=== PATIENT | male | born 1935 | race Caucasian/White ===

== ENCOUNTER 2016-05-26 03:19 | Inpatient (IN) | payer OTHER, MEDICARE ==
[~2016-05-26] VITALS: Ht 165.1 cm; Wt 70.3 kg
[2016-07-23] MEDS ORDERED: SPIRIVA18 MCG INH (15:23)
[2016-07-23] MEDS ORDERED: ASPIRIN EC81 M1 PO (15:23)
--- NOTE | 2016-07-28 10:19 | Admission Core Measures ---
Admission Meds I reviewed the following Meds: Current Medications Sig/Dharmesh Start time Last Medication Dose Stop Time Status Admin Acetaminophen 975 MG ONCE 07/28 NR (Tylenol) 07/28 2358 Cefazolin Sodium 2,000 MG ONCE 07/28 NR (Kefzol-Ancef Inj) 07/28 2358 Oxycodone HCl 10 MG ONCE 07/28 NR (Roxicodone) 07/28 2358 Acute Coronary Syndrome Inclusion Criteria ACS Diagnosis No Inpatient Core Measures LDL Reminder: If No, please order W/I first 24hr of stay Congestive Heart Failure Inclusion Criteria CHF Diagnosis No Cerebrovascular accident Inclusion Criteria CVA/TIA Diagnosis No Inpatient Core Measures Bedside Swallow Eval Reminder: If BSE failed, place ST order Antithrombotic Reminder: Order Antithrombotic Medication by end of day 2 Antithrombotic Reminder: Document Reason Antithrombotic Not ordered by end of day 2 AFIB/Flutter Reminder: If Present, add to problem list AFIB/Flutter Reminder: Order Anticoag Medication for pts with AFIB/Flutter Atherosclerosis Reminder: If Present, add to problem list LDL Reminder: If No, please order W/I first 24hr of stay PT Order Reminder: If No, please order Venous thromboembolism Inpatient Core Measures VTE Risk Factors: Age > 40, Surgery No [facility] VTE prophylaxis d/t No contraindications No VTE Pharm Prophylaxis d/t No contraindications Inclusion Criteria - Per Current guidelines, there needs to be overlap - treatment for the first 5 days of Warfarin therapy. - Parenteral Anticoagulation (IV or SC) needs to be - given along with Warfarin therapy. VTE Diagnosis No VTE Type NONE VTE Confirmed by (Test) NONE Problem List As ranked by this Provider includes Assessment & Plan 1. Status post total hip replacement, left HOME MEDS Home Med List Aspirin (Ecotrin*) 81 MG TABLET.DR 1 TAB PO DAILY PROPHO (Reported) Tiotropium [place] (Spiriva) 18 MCG CAP.W.DEV 1 CAP INH DAILY COPD (Reported)
[2016-07-28] MEDS ORDERED: MIRALAX17 G1 PO (10:37)
[2016-07-28] MEDS ORDERED: COLACE100 M1 PO (10:37)
[2016-07-28] MEDS ORDERED: DILAUDID2 M1 PO (10:37)
[2016-07-28] MEDS ORDERED: ASPIRIN EC325 M2 PO (10:37)
[2016-07-28] MEDS ORDERED: MS CONTIN15 M2 PO (10:37)
--- NOTE | 2016-07-28 11:12 | Patient Discharge Instructions ---
Discharge Instructions General Discharge Information You were seen/treated for: Left hip DJD/osteoarthritis You had these procedures: Left anterior total hip replacement Watch for these problems: A vertical 101, excessive drainage from the wound, inability to bear weight on the operative site Do not soak the wound: Yes No bath, but you may shower: Yes Other wound care: Dry dressing change once daily starting postoperative day #2. You may shower as desired. No baths. No ointments of any kind. Ice as needed for comfort. Diet Continue normal diet: Yes Recommended Diet: Regular Activity Full Activity/No Limits: No Activity Self Limited: Yes Pounds, do NOT lift more than: 5 Activity Limited to: Weight bear as tolerated Other activity limits: Avoid strenuous activity. You may ambulate as desired with rolling walker and progressed per PT recommendations. No driving while using narcotics and until cleared by [facility] Acute Coronary Syndrome Inclusion Criteria At DC or during hospital stay patient has or had the following: ACS DIAGNOSIS No Discharge Core Measures Meds if any: Prescribed or Continued at Discharge Meds if any: NOT Prescribed or Continued at Discharge Congestive Heart Failure Inclusion Criteria At DC or during hospital stay patient has or had the following: CHF DIAGNOSIS No Discharge Core Measures Meds if any: Prescribed or Continued at Discharge Meds if any: NOT Prescribed or Continued at Discharge Cerebrovascular accident Inclusion Criteria At DC or during hospital stay patient has or had the following: CVA/TIA Diagnosis No Discharge Core Measures Meds if any: Prescribed or Continued at Discharge Meds if any: NOT Prescribed or Continued at Discharge Venous thromboembolism Inclusion Criteria VTE Diagnosis No VTE Type NONE VTE Confirmed by (Test) NONE Discharge Core Measures - Per Current guidelines, there needs to be overlap - treatment for the first 5 days of Warfarin therapy. - If discharged on Warfarin prior to 5 days of - overlap therapy, the patient will need to be - assessed for post discharge needs including - *Post discharge parental anticoagulation - *Warfarin and/or parental anticoagulation education - *Follow up date to check INR post discharge At least 5 days overlap therapy as Inpatient No Meds if any: Prescribed or Continued at Discharge Note: Overlap Therapy is Warfarin and Anticoagulant Meds if any: NOT Prescribed or Continued at Discharge
--- NOTE | 2016-07-28 12:57 | RADIOLOGY REPORT ---
EXAMINATION: XR HIP, LEFT CLINICAL INFORMATION: Status post total hip arthroplasty. COMPARISON: 04/07/2016. TECHNIQUE: Two views of the left hip. FINDINGS: There are immediate postoperative changes identified consistent with the patient's history of a left total hip arthroplasty. The acetabular and proximal femoral components appear well-positioned without evidence of immediate complication. IMPRESSION: Postoperative changes without radiographic evidence of complication.
[2016-07-28 13:45] VITALS: BP 118/78
--- NOTE | 2016-07-28 13:45 | NUR ---
NURSING NOTE: PT ARRIVED TO FLOOR VIA STRETVHER WITH DISTRIBUTION FROM PACU, S/P L THR. PT AWAKE, A/OX3, VITALS OBTAINED, PT AMBULATED WITH P.T. FROM STRETCHER IN HALLWAY TO RECLINER WITH RW/ASSIST X2. PT DENIES PAIN, +PULSES, BED/CHAIR ALARM IN PLACE; PT C/O "JELLO LEGS FROM ANESTHESIA" IVF PER MD ORDER.DSG INTACT. INFOR PACKET GIVEN, HOURLY ROUNDING EXPLAINED. INSENTIVE SPIR GIVEN AND TAUGHT, AT BEDSIDE, ICE PACK IN PLACE, PT AWARE TO CALL FOR ASSIST. CONT TO MONITOR. WILL REVIEW ORDERS
--- NOTE | 2016-07-28 15:41 | PN- Orthopedic ---
Subjective Subjective: Patient has no major complaint at this time. He denies pain. He is tolerating a diet. He hasn't voided as of yet, but feels the urge. He ambulated with physical therapy, but was unable to do stairs at that time due to some numbness, which has since resolved. Otherwise denies headache, dizziness, chest pain, shortness of breath. Objective Vital Signs and I&Os Vital Signs Date Time Temp Pulse Resp B/P B/P Pulse O2 O2 Flow FiO2 Mean Ox Delivery Rate 07/28 1345 97.6 60 20 118/78 97 Room Air Intake & Output 07/28 1600 07/28 0800 07/28 0000 07/27 1600 07/27 0800 07/27 0000 Intake Total 175 Output Total 0 Balance 175 Intake, IV 75 Intake, Oral 100 Number 0 Bowel Movements Output, Urine 0 Patient 155 lb Weight Weight Reported by Patient Measurement Method Physical Exam: Gen.: Patient is awake and alert. He is sitting in the chair. No acute distress. Cardiac: Regular Pulmonary: Clear bilaterally. Extremities: Left hip dressing is clean, dry, and intact. There is some mild to moderate suri-incisional swelling, but within expected limits. The area is soft. Lower extremity sensation is intact bilaterally. Strength of dorsiflexion and plantar flexion are 4 out of 5 and equal bilaterally. Teds are in place. No significant distal edema or calf tenderness are appreciated. Assessment/Plan Assessment/Plan Patient is an 80-year-old male who is now postoperative day #0 status post left anterior total hip replacement. He remains stable from a surgical standpoint and is anxiously awaiting discharge. Plan: -PT for mobilization. WBAT with rolling walker. Still awaiting evaluation for stairs. -Pain control with morphine for now. Po dilaudid when tolerating po. -Continue heart healthy diet as tolerated. Okay to Hep-Lock fluids when patient is voided. -Zofran for nausea as needed. -Colace and miralax for bowel regimen. -ASA 325 bid for DVT ppx. Alps and Sebastian's as well. -Ancef x 2 doses for prophylaxis. -Await void. -Plan for discharge this afternoon if cleared by PT and after void. Core Measures/Miscellaneous Venous Thromboembolism VTE Risk Factors: Age > 40, Surgery VTE Contraindications: No Contraindications VTE Diagnosis: No VTE Type: NONE VTE Confirmed by (Test): NONE Beta Estephania Is Beta Estephania a Home Med? No Antibiotics Is Patient on Antibiotics? Yes If Yes: prophylaxis
--- NOTE | 2016-07-28 15:43 | Surg Short-stay <48hrs Dis Sum ---
Visit Information Visit Dates Admission Date: 07/28/16 Discharge Date: 07/28/2016 Surgical Short Stay DC Summary Admission Diagnosis: Left hip DJD/osteoarthritis Final Diagnosis: Same Procedure(s): Left anterior total hip replacement Summary/Significant Findings: Patient was admitted to [facility] for elective surgery on 07/28/2016 and underwent left total hip replacement. The patient tolerated the procedure well, without complications. The postoperative course remained uneventful. Pain was well controlled with oral pain medication, tolerated a regular diet, and voiding without difficulty. The patient was evaluated by physical therapy, was deemed stable from a medical standpoint, and was discharged on the day of surgery. Condition at Discharge: Stable Discharge Disposition: home health services Discharge instructions provided to patient/family: Yes Post discharge follow-up plan: Incision: Dry dressing. May shower. No baths. No ointments of any kind. Ice as needed. Bowel regimen: Colace and or MiraLAX Weight-bearing as tolerated Follow-up with Dr. Dillard in 6 weeks. Call office for fevers greater than 101.5, excessive drainage or inability to bear weight on operative extremity. Visiting nurse will remove alber.
--- NOTE | 2016-07-28 16:28 | Operative Report ---
Operative/Inv Procedure Report Surgery Date: 07/28/16 Name of Procedure: Left total hip replacement Pre-Operative Diagnosis: Primary left hip DJD Post-Operative Diagnosis: Same Estimated Blood Loss: 250 Surgeon/Manager Sign: STEFAN HAMPTON,VESTA Courtney Anesthesia: block Operative/Procedure Note Note: Description of Procedure: The patient was taken to the operating room and positively identified. After induction of spinal anesthesia and administration of appropriate pre-operative antibiotics, the patient was positioned supine on the operating room table and all bony prominences were well padded. After performing a surgical timeout, the left lower extremity was prepped and draped in the usual sterile fashion. A direct anterior approach was made to the left hip. The incision was carried sharply through superficial soft tissues to the level of the fascia. Meticulous hemostasis was maintained with Bovie electocautery. The fascia over the tensor fascia brianan muscle was opened sharply and the interval between the TFL and the sartorius was entered bluntly taking care to stay lateral to the lateral femoral cutaneous nerve. Retractors were placed around the femoral neck and the pericapsular fat was identified. The ascending branches of the lateral femoral circumflex vessels were identified and carefully coagulated. The pericapsular fat and anterior capsule were then resected. A napkin ring osteotomy was performed and the femoral head was removed without difficulty. Attention was then turned to the acetabulum. After appropriate placement of retractors, the acetabulum was exposed. Soft tissue was cleaned from the acetabular margin and notch. Overhanging osteophytes were removed and the teardrop was exposed. The acetabulum was then sequentially reamed to accept a 56 mm Lima Tritanium hemispherical solid back shell. This was impacted into place in the appropriate position and fitted with a 36 mm Trident X3 zero degree polyethylene insert. Attention was then turned to the femur. After performing the appropriate ligament releases, the proximal femur was exposed. It was then sequentially broached to accept a size 7 Lima Accolade 2 stem. This was trialed for leg length and stability. The trial component was removed and the final component was impacted into place. The trunnion was carefully cleaned and fit with a 36 mm, +0 Biolox delta ceramic femoral head. The hip was reduced and put through a full range of motion and found to be stable. The articular space was then irrigated with sterile saline. The periarticular soft tissues were infilitrated with Marcaine. The fascial layer was closed with interrupted #1 vicryl suture and the skin was re-approximated with interrupted 2 -0 vicryl. The skin was closed with a running 3-0 V-Lock suture. Steri-strips and a sterile dressing were applied. The patient was awakened and taken to the recovery room in satisfactory condition.
== END 2016-07-28 16:49 | disposition home health service (06) | DRG 470 ==
LOC: UNDOADMIN 03:19 → SDA 03:19 → EDBD 07:00 → SDA 07-28 01:44 → ENRESERV 07-28 13:20 → 2NB 07-28 13:48 → ENPENDDIS 07-28 16:05 → 2NB 07-28 16:49
PROVIDERS: ADMIT Orthopaedic Surgery
PROC: 0SRB04A Replacement of Left Hip Joint with Ceramic on Polyethylene Synthetic Substitute, Uncemented, Open Approach (ICD-10-PCS; principal; 2016-07-28)
DX: M16.12 Unilateral primary osteoarthritis, left hip (principal); J44.9 Chronic obstructive pulmonary disease, unspecified; Z87.891 Personal history of nicotine dependence
CPT/HCPCS: 2NBP; 73502-LT; 88304; 97110-GO; 97116-GO; 97161-GP; 97530-GO; J0690; J0735; J2250; J2405; J7042